=== PATIENT | female | born 1995 | race African-American/Black ===

== ENCOUNTER 2023-01-30 09:07 | Emergency (ER) | payer MEDICAID ==
[~2023-01-30] VITALS: Ht 167.6 cm; Wt 75.0 kg
[~2023-01-30 09:07] MED LIST: HUMALOG; LANTUS
[2023-01-30] MEDS ORDERED: ACETAMINOPHEN 325MG TABLET PO ONE (09:30)
[2023-01-30] MEDS ORDERED: TOPUD PO (10:10)
[2023-01-30 10:38] VITALS: BP 162/93
== END 2023-01-30 10:41 | disposition home or self-care (01) ==
LOC: ER 09:24
DX: M25.512 Pain in left shoulder (principal); R07.89 Other chest pain; M25.562 Pain in left knee; E11.9 Type 2 diabetes mellitus without complications
CPT/HCPCS: 71045; 73030; 73560; 99284; A4565